=== PATIENT | male | born 1950 | race Caucasian/White ===

== ENCOUNTER 2024-09-13 10:10 | Emergency (ER) | payer OTHER ==
[~2024-09-13] VITALS: Ht 177.8 cm; Wt 86.2 kg
[~2024-09-13 10:10] MED LIST: LOSARTAN-HCTZ1 EAC2 PO
[2024-09-13 10:22] VITALS: TEMP 98.6
[2024-09-13] MEDS ORDERED: TRAMADOL HCL 50 MG TAB ONE (10:58)
[2024-09-13] MEDS ORDERED: KETOROLAC TROMETHAMINE 30 MG/ML VIAL ONE (10:59)
[2024-09-13] MEDS: KETOROLAC TROMETHAMINE 30 MG/ML VIAL IM STA (11:03)
[2024-09-13] MEDS: TRAMADOL HCL 50 MG TAB PO ONE (11:03)
[2024-09-13 13:00] VITALS: PULSE 63; RESP 18; O2SAT 97
[2024-09-13] MEDS ORDERED: CYCLOBENZAPRINE10 MG PO (13:12)
[2024-09-13] MEDS ORDERED: NAPROXEN250 MG PO (13:12)
== END 2024-09-13 13:26 | disposition home or self-care (01) ==
LOC: ER 10:17
DX: M54.2 Cervicalgia (principal); S09.90XA Unspecified injury of head, initial encounter; M25.552 Pain in left hip; M25.562 Pain in left knee; V43.52XA Car driver injured in collision with other type car in traffic accident, initial encounter; Y92.488 Other paved roadways as the place of occurrence of the external cause; I10 Essential (primary) hypertension; E78.5 Hyperlipidemia, unspecified
CPT/HCPCS: 70450; 72125; 73501; 73562; 99284; J1885

== ENCOUNTER 2024-09-21 12:47 | Emergency (ER) | payer SELFPAY ==
[~2024-09-21] VITALS: Ht 177.8 cm; Wt 86.2 kg
[~2024-09-21 12:47] MED LIST changes: +CYCLOBENZAPRINE10 MG PO; +NAPROXEN250 MG PO
[2024-09-21 13:04] VITALS: PULSE 78; RESP 17; TEMP 97.9; O2SAT 98
== END 2024-09-21 13:45 | disposition home or self-care (01) ==
LOC: ER 13:20
DX: F07.81 Postconcussional syndrome (principal); M54.2 Cervicalgia; I10 Essential (primary) hypertension; E78.5 Hyperlipidemia, unspecified
CPT/HCPCS: 99282